=== PATIENT | female | born 1975 | race Caucasian/White ===

== ENCOUNTER 2023-08-02 02:08 | Emergency (ER) | payer BC ==
[~2023-08-02] VITALS: Ht 157.5 cm; Wt 74.8 kg
[~2023-08-02 02:08] MED LIST: ALLEGRA ALLERG180 MG PO; CETI5 PO; ERGO400 PO; MONT5TCH PO
[2023-08-02] MEDS ORDERED: MONT10T PO (02:59)
[2023-08-02] MEDS ORDERED: IPRATROPIUM BRO30 ML NS (02:59)
[2023-08-02 03:00] LABS: BASOPHILS ABSOLUTE AUTO 0.04 K/mm3 (0.00-0.23); BASOPHILS PERCENT AUTO 0 % (0-2); EOSINOPHILS PERCENT AUTO 0 % (0-6); Hematocrit 40.5 % (33.0-51.0); Hemoglobin 13.4 g/dL (11.5-16.0); IMMATURE GRAN ABSOLUTE AUTO 0.04 K/mm3 (0.00-0.10); IMMATURE GRAN PERCENT AUTO 0 % (0-1); LYMPHOCYTES ABSOLUTE AUTO 1.14 K/mm3 (0.84-5.20); LYMPHOCYTES PERCENT AUTO 9 % (21-46); MONOCYTES ABSOLUTE AUTO 0.24 K/mm3 (0.16-1.47); MONOCYTES PERCENT AUTO 2 % (4-13); Mean Corpuscular HGB 28.8 pg (26.0-34.0); Mean Corpuscular HGB Conc 33.1 g/dL (31.5-36.5); Mean Corpuscular Volume 87 fL (80-100); Mean Platelet Volume 8.6 fL (9.1-12.4); NEUTROPHILS PERCENT AUTO 89 % (41-73); Platelet Count 342 K/mm3 (150-400); RDW Standard Deviation 41.1 fL (35.1-46.3); Red Blood Cell Count 4.65 M/mm3 (3.80-5.20); White Blood Cell Count 12.96 K/mm3 (4.00-11.30)
[2023-08-02] MEDS ORDERED: MAGCIT300 PO (03:00)
[2023-08-02] MEDS ORDERED: SHAROBEL0.35 MG PO (03:00)
[2023-08-02 03:28] LABS: Albumin, Blood 4.1 g/dL (3.4-5.0); Albumin/Globulin Ratio 1.3 (0.8-1.8); Bilirubin, Total 0.3 mg/dL (0.1-1.0); Bun/Creatinine Ratio 28.7 (12.0-20.0); Calcium, Blood 9.8 mg/dL (8.5-10.1); Creatinine, Blood 0.59 mg/dL (0.40-1.00); Globulin, Blood 3.2 g/dL (2.2-4.0); Potassium, Blood 3.9 mmol/L (3.5-5.5); Total Protein, Blood 7.3 g/dL (6.4-8.2)
[2023-08-02] MEDS ORDERED: Metoclopramide HCl 5MG / ML 2ML Vial IV ONE (05:05)
[2023-08-02] MEDS ORDERED: Mag Hydrox/AL Hydrox/Simeth 30 ML UDC PO ONE (05:05)
[2023-08-02] MEDS ORDERED: Ketorolac Tromethamine 30mg Vial IV ONE (05:05)
[2023-08-02] MEDS ORDERED: NS 1,000 ML IV SCH (05:05)
[2023-08-02 05:58] LABS: Source, Urine Clean Catch
[2023-08-02 06:00] LABS: Bilirubin, Urine Neg (Neg); Blood, Urine 4+ (Neg); Glucose Qualitative, Urine Neg (Neg); Ketones, Urine 4+ (Neg); Leukocyte Esterase, Urine 1+ (Neg); Nitrite, Urine Neg (Neg); Protein, Urine 1+ (Neg); Urobilinogen, Urine NORM (Normal)
[2023-08-02 06:17] LABS: Appearance, Urine Clear (Clear); Color, Urine Yellow (P-Yellow)
[2023-08-02 06:18] LABS: Bacteria Few /hpf; Mucus Light (0-Heavy); Red Blood Cells, Urine 0-2 /hpf (0-2); Squamous Epithelial Cells Few /hpf (Few); White Blood Cells, Urine 0-2 /hpf (0-5)
[2023-08-02] MEDS ORDERED: ALMACONE SUSPE355 ML PO ×2 (07:23→13:53)
[2023-08-02] MEDS ORDERED: RX Prepack 2 Tabs Ondansetron ODT 4MG UD ONE (07:25)
[2023-08-02 07:40] VITALS: BP 134/84
== END 2023-08-02 08:45 | disposition home or self-care (01) ==
LOC: ER 02:08
PROVIDERS: Emergency Medicine
DX: R10.13 Epigastric pain (principal); E86.0 Dehydration; R11.2 Nausea with vomiting, unspecified; Z79.899 Other long term (current) drug therapy
CPT/HCPCS: 74177; 80053; 81001; 81025; 83690; 85025; 93005; 93010; 96361; 96374-59; 96375; 99284-25; A9270; J1885; J2765; J7030; Q9967

== ENCOUNTER 2024-04-16 06:08 | Day surgery (SDC) | payer BC ==
[2024-04-16] VITALS (15 sets, daily range): BP systolic 120–135; BP diastolic 62–88
[~2024-04-16] VITALS: Ht 157.5 cm; Wt 74.8 kg
[~2024-04-16 06:08] MED LIST changes: +ALMACONE SUSPE355 ML PO; +IPRATROPIUM BRO30 ML NS; +MAGCIT300 PO; +MAGNESIUM CITR125 MG PO; +MAGNESIUM GLU27.5 M1 PO; +MONT10T PO; +NYAMYC1513 TOP; +SHAROBEL0.35 MG PO; +VITAMIN D5000 UNIT PO
[2024-04-16] MEDS ORDERED: CeFAZolin Sodium 2,000 MG in NS 100 ML IV SCH ×2 (06:25→18:00)
[2024-04-16] MEDS ORDERED: Lactated Ringer's 1,000 ML IV SCH ×2 (06:25→12:20)
--- NOTE | 2024-04-16 07:05 | NUR ---
Ambulatory in Day SurgeryPre-Op teaching done. Pt verbalizes understanding. History, Chart, Medications and Allergies reviewed before start of procedure.Patient confirms NPO status and agrees with scheduled surgery. Patient reports completing Chlorhexadine shower X2 prior to admission to hospital.
[2024-04-16] MEDS ORDERED: CeFAZolin Sodium 2,000 MG VIAL ONE (07:14)
[2024-04-16] MEDS ORDERED: Bupivacaine 0.5% HCl 5 MG/ML 30MLVIAL ONE (07:15)
[2024-04-16] MEDS ORDERED: propofoL 20 ML IV ONE (07:27)
[2024-04-16] MEDS ORDERED: Midazolam HCl 1MG / ML 2ML Vial ONE (07:27)
[2024-04-16] MEDS ORDERED: FentaNYL Citrate 50 MCG/ML 2 ML Injection ONE ×2 (07:27→07:38)
[2024-04-16] MEDS ORDERED: Dexamethasone Sod Phos 10 MG/ML 1ML VIAL ONE (07:38)
[2024-04-16] MEDS ORDERED: Ondansetron HCl 2 MG / ML 2ML Vial ONE ×2 (07:38→11:40)
[2024-04-16] MEDS ORDERED: Rocuronium Bromide 10 MG/ML 5ML Injection IV ONE ×3 (07:38→09:38)
[2024-04-16] MEDS ORDERED: Phenylephrine HCl 100 MCG/ML-NS 10MLSYR (1MG/10ML) ONE (08:40)
[2024-04-16] MEDS ORDERED: Phenylephrine HCl 10mg/ml 1 ml Vial ONE (08:58)
[2024-04-16] MEDS ORDERED: Ketorolac Tromethamine 30mg Vial ONE (10:58)
[2024-04-16] MEDS ORDERED: Sugammadex Sodium 200 MG/2ML SDV (100 MG/ML) ONE (10:59)
[2024-04-16] MEDS ORDERED: HYDROmorphone HCl/Pf 1MG SYR ONE ×2 (11:03→11:04)
[2024-04-16] MEDS ORDERED: Promethazine HCl 25 MG Tab PO PRN (12:15)
[2024-04-16] MEDS ORDERED: HYDROmorphone HCl/Pf 1MG SYR IV PRN (12:15)
[2024-04-16] MEDS ORDERED: Ondansetron 4 MG TAB PO PRN (12:20)
[2024-04-16] MEDS ORDERED: Naloxone HCl 0.4MG / ML 1ML Vial IV PRN (12:20)
[2024-04-16] MEDS ORDERED: OxyCODONE 5 mg/Acetamin 325 mg TABLET PO PRN (12:20)
[2024-04-16] MEDS ORDERED: FLU VACC TS2024-25(6MOS UP)/PF 45 MCG/0.5 ML SYRINGE IM SCH (12:20)
[2024-04-16] MEDS ORDERED: Simethicone 80 MG Chew PO PRN (12:20)
[2024-04-16] MEDS ORDERED: Ondansetron HCl 2 MG / ML 2ML Vial IV PRN (12:25)
[2024-04-16] MEDS ORDERED: Promethazine HCl 12.5 MG Supp PR PRN (12:25)
[2024-04-16] MEDS ORDERED: Ketorolac Tromethamine 30mg Vial IV PRN (12:30)
--- NOTE | 2024-04-16 13:07 | NUR ---
patient brought from surgical procedure aprox 12 noon. R.N. student and chip silo tender present, Transfer, fresh linens, soiled removed, patient cleanup and skin check. Post op vitals performed, SCDS provided, KPAD provided, Ice chips, jello crackers and water at bedside. MILD LETHERGIC, c-o pain and discomfort. Discussed whats normal after procedure. here now. Discussed call light and safe instruction for movement and concerns. Will continue w post op and care as needed.
--- NOTE | 2024-04-16 18:27 | NUR ---
SUMMARY: NO ACUTE CHANGE SINCE POST OP. A/O, VSS. SURGICAL SITES WNL. SCANT VAGINAL BLEED. PT ABLE TO WALK IN ROOM, SIT UP IN CHAIR AND VOID. PAIN WELL CONTROLED WITH 2 OXY. PT USES CALL LIGHT AND MAKES NEEDS KNOWN.
[2024-04-17 04:48] LABS: BASOPHILS ABSOLUTE AUTO 0.03 K/mm3 (0.00-0.23); BASOPHILS PERCENT AUTO 0 % (0-2); EOSINOPHILS ABSOLUTE AUTO 0.01 K/mm3 (0.00-0.68); EOSINOPHILS PERCENT AUTO 0 % (0-6); Hematocrit 36.3 % (33.0-51.0); Hemoglobin 12.1 g/dL (11.5-16.0); IMMATURE GRAN ABSOLUTE AUTO 0.02 K/mm3 (0.00-0.10); IMMATURE GRAN PERCENT AUTO 0 % (0-1); LYMPHOCYTES ABSOLUTE AUTO 2.34 K/mm3 (0.84-5.20); LYMPHOCYTES PERCENT AUTO 22 % (21-46); MONOCYTES PERCENT AUTO 8 % (4-13); Mean Corpuscular HGB 29.2 pg (26.0-34.0); Mean Corpuscular HGB Conc 33.3 g/dL (31.5-36.5); Mean Corpuscular Volume 88 fL (80-100); Mean Platelet Volume 8.8 fL (9.1-12.4); NEUTROPHILS PERCENT AUTO 70 % (41-73); Platelet Count 282 K/mm3 (150-400); RDW Coefficient Variation 12.7 % (11.7-14.2); RDW Standard Deviation 40.5 fL (35.1-46.3); Red Blood Cell Count 4.14 M/mm3 (3.80-5.20)
[2024-04-17 04:51] VITALS: BP 134/86
[2024-04-17 07:34] VITALS: BP 128/83
--- NOTE | 2024-04-17 07:50 | NUR ---
SUMMARY PT TOLERATING PO SMALL AMNTS,VOIDING ,REPORTS PAIN CONTROL EFFECTIVE.DENIES NAUSEA,NO FLATUS YET.PT PLANS FOR DISCHARGE HOME TODAY.
[2024-04-17] MEDS ORDERED: Estradiol 1 MG Tab PO SCH (09:00)
[2024-04-17] MEDS ORDERED: Loratadine 10 MG Tab PO SCH (09:00)
[2024-04-17] MEDS ORDERED: Montelukast Sodium 10 MG Tab PO SCH (09:00)
[2024-04-17] MEDS ORDERED: Percocet 5-3251 EACH PO (09:04)
[2024-04-17] MEDS ORDERED: ESTR2 PO (09:04)
[2024-04-17] MEDS ORDERED: SIME80CH PO (09:05)
[2024-04-17] MEDS ORDERED: PROMETHAZINE12.5 M1 PO (09:05)
--- NOTE | 2024-04-17 10:26 | NUR ---
DISCHARGE PT EDUCATED ON AND RECEIVED PRINTED DISCHARGE INSTRUCTIONS AND VERBALIZED AN UNDERSTANDING. NEW RX FOR ESTRACE FAXED TO [facility] FOR PT. PT VERBALIZED SHE ALREADY FILLED OTHER RX'S PRIOR TO SURGERY. IV DC'D. PT ENEIDA REG DIET WITH NO N/V, PASSING FLATUS, INDEP AMBULATING HALLWAY, AND REPORTS MINIMAL PAIN. PT VOIDING SPONTANEOUSLY WITH SCANT VAGINAL BLEEDING. LAP SITES X4 TO ABD WITH WOUND GLUE ARE CDI. PT GATHERED ALL PERSONAL BELONGINGS AND WAS ESCORTED OUT TO VEHICLE VIA W/C WITH SIG OTHER TO TAKE PT HOME.
== END 2024-04-17 09:24 | disposition home or self-care (01) ==
LOC: ORSCMMR 06:08 → ORD 07:30 → SURS 12:02 → ORSCMMR 04-17 09:24
PROVIDERS: Obstetrics & Gynecology
PROC: 0UT7FZZ Resection of Bilateral Fallopian Tubes, Via Natural or Artificial Opening With Percutaneous Endoscopic Assistance (ICD-10-PCS; principal; 2024-04-16 07:30)
PROC: 0UNF4ZZ Release Cul-de-sac, Percutaneous Endoscopic Approach (ICD-10-PCS; principal; 2024-04-16 07:30)
PROC: 0UT9FZZ Resection of Uterus, Via Natural or Artificial Opening With Percutaneous Endoscopic Assistance (ICD-10-PCS; principal; 2024-04-16 07:30)
PROC: 0DNU4ZZ Release Omentum, Percutaneous Endoscopic Approach (ICD-10-PCS; principal; 2024-04-16 07:30)
PROC: 0UT2FZZ Resection of Bilateral Ovaries, Via Natural or Artificial Opening With Percutaneous Endoscopic Assistance (ICD-10-PCS; principal; 2024-04-16 07:30)
DX: N92.1 Excessive and frequent menstruation with irregular cycle (principal); N80.03 Adenomyosis of the uterus; N94.6 Dysmenorrhea, unspecified; N94.10 Unspecified dyspareunia; R10.2 Pelvic and perineal pain; N83.291 Other ovarian cyst, right side; N83.12 Corpus luteum cyst of left ovary; N73.6 Female pelvic peritoneal adhesions (postinfective); O34.22 Maternal care for cesarean scar defect (isthmocele); N80.329 Endometriosis of the posterior cul-de-sac, unspecified depth; N80.121 Deep endometriosis of right ovary; Z79.899 Other long term (current) drug therapy
CPT/HCPCS: 36415; 85025; 86850; 86900; 86901; 88307; A9270; J0690; J1100; J1171; J1885; J2250; J2371; J2405; J2704; J3010; J7120